=== PATIENT | female | born 1960 | race Caucasian/White ===

== ENCOUNTER 2024-05-13 14:08 | Emergency (ER) | payer OTHER, SELFPAY ==
[2024-05-13 14:10] VITALS: BP 167/97
--- NOTE | 2024-05-13 15:18 | ED.GENMED ---
History of Present Illness
<Linda Gayle PA-C - Last Filed: 05/14/24 11:12>
General
Chief Complaint: Numbness
Source: patient and family ([id number] at bedside assisting in translation)
Exam Limitations: none
Time Seen by Provider: 05/13/24 14:56
Nursing documentation reviewed up to this point in time: agreed with
History of Present Illness
History of Present Illness:
Patient is a 64-year-old female presenting to the emergency department for evaluation of facial pain. Patient reports starting this morning she has had intermittent bouts of severe facial pain on her right side of her face described as 'electric
shocks '. Bouts of pain have been intermittent occurring approximately every 30 minutes and last about 1 to 2 minutes each. Patient denies any other associated symptoms at that time including headache, changes in vision, neck pain, fever, or
chills. Patient denies any weakness. Bouts of pain�she is noticing pain and also notes some numbness in her hands.
Patient does state that over the past few weeks she has had some intermittent sense of numbness on the right side of her face the pain did not start till today.
Patient is mainly non-Mauritian speaking�her [id number] is in the room helping to translate. Patient reports recent increase in stress as her was diagnosed with ALS.
Past History
<Linda Gayle PA-C - Last Filed: 05/14/24 11:12>
Past History
ED Past Medical History: None
ED Past Surgical History: None
Social History
Tobacco: Non-smoker
Alcohol: None
Drug: None
Review of Systems
<Linda Gayle PA-C - Last Filed: 05/14/24 11:12>
Review of Systems
Allergies reviewed?: Yes
All Other Systems: ROS reviewed and negative except as documented in HPI and ROS
Phy Exam
<Linda Gayle PA-C - Last Filed: 05/14/24 11:12>
Physical Exam
Physical Exam:
Vitals: Mildly tachycardic, hypertensive
General: Patient is wincing in pain on my initial evaluation. Nontoxic-appearing
Skin: Warm and dry, no rashes or lesions
Head: Normocephalic, atraumatic. No rash on face. No tenderness overlying bilateral temporal arteries
Eyes: Sclera nonicteric. EOMs intact. No nystagmus. Pupils equal round reactive to light bilaterally
Throat: Good dentition. Protecting airway
Neck: Normal ROM, no cervical spine tenderness, no meningismus
Cardiac: Regular rate and rhythm, no murmurs.
Pulm: Normal respiratory effort, no wheezes, rales, rhonchi heard on exam.
Abdomen: Nondistended.
Extremities: No evidence of cyanosis or edema. Great distal pulse
Neuro: AAOx3. CN II-XII intact. No facial assymetry. Strength 5 out of 5 in upper and lower extremities. Sensation fully intact. Speech fluid. Bilateral patellar reflex 2+
Psychiatric: Normal affect.
Course
<Linda Gayle PA-C - Last Filed: 05/14/24 11:12>
Orders/Labs/Results
Orders:
Orders
05/13/24 15:41
CT Head W/o Iv Contrast Urgent
Comment:
Reason For Exam: Right sided facial numbness/ pain
Gabapentin [Neurontin] 100 mg PO NOW STA
05/13/24 15:54
Lorazepam [Ativan] 0.5 mg IV NOW STA
05/13/24 16:05
Basic Metabolic Panel Urgent
Complete Blood Count/With Diff Urgent
05/13/24 18:44
Carbamazepine [Tegretol] 200 mg PO NOW STA
Abnormal Lab Results
05/13/24
16:05
Absolute Neuts (auto) 7.4 H 10^3/uL
(1.4-6.5)
Absolute Lymphs (auto) 0.8 L 10^3/uL
(1.2-3.4)
Neutrophils % 86.1 H %
(42.2-75.2)
Lymphocytes % 9.2 L %
(20.5-51.1)
Carbon Dioxide 20 L mmol/L
(22-30)
Glucose 133 H mg/dl
(70-99)
05/13/24 16:05
05/13/24 16:05
Vital Signs
Initial and Last Documented VS:
Initial Vital Signs
Temp Pulse Resp BP Pulse Ox
98.8 F 104 18 167/97 98
05/13/24 14:10 05/13/24 14:10 05/13/24 14:10 05/13/24 14:10 05/13/24 14:10
Last Documented Vital Signs
Temp Pulse Resp BP Pulse Ox
98.8 F 96 18 156/74 99
05/13/24 14:10 05/13/24 19:34 05/13/24 19:34 05/13/24 19:34 05/13/24 19:19
<Gisele Crawford, DO - Last Filed: 05/13/24 18:33>
Orders/Labs/Results
Orders:
Orders
05/13/24 15:41
CT Head W/o Iv Contrast Urgent
Comment:
Reason For Exam: Right sided facial numbness/ pain
Gabapentin [Neurontin] 100 mg PO NOW STA
05/13/24 15:54
Lorazepam [Ativan] 0.5 mg IV NOW STA
05/13/24 16:05
Basic Metabolic Panel Urgent
Complete Blood Count/With Diff Urgent
05/13/24 18:44
Carbamazepine [Tegretol] 200 mg PO NOW STA
Abnormal Lab Results
05/13/24
16:05
Absolute Neuts (auto) 7.4 H 10^3/uL
(1.4-6.5)
Absolute Lymphs (auto) 0.8 L 10^3/uL
(1.2-3.4)
Neutrophils % 86.1 H %
(42.2-75.2)
Lymphocytes % 9.2 L %
(20.5-51.1)
Carbon Dioxide 20 L mmol/L
(22-30)
Glucose 133 H mg/dl
(70-99)
05/13/24 16:05
05/13/24 16:05
Vital Signs
Initial and Last Documented VS:
Initial Vital Signs
Temp Pulse Resp BP Pulse Ox
98.8 F 104 18 167/97 98
05/13/24 14:10 05/13/24 14:10 05/13/24 14:10 05/13/24 14:10 05/13/24 14:10
Last Documented Vital Signs
Temp Pulse Resp BP Pulse Ox
98.8 F 96 18 156/74 99
05/13/24 14:10 05/13/24 19:34 05/13/24 19:34 05/13/24 19:34 05/13/24 19:19
<Linda Gayle PA-C - Last Filed: 05/14/24 11:12>
MDM/Problems Addressed
Differential Diagnosis Includes:
Not limited to: trigeminal neuralgia, zoster, doubt CVA
MDM/Problems Addressed:
64 y.o F presenting with episodic right sided facial pain occurring intermittently over the past few weeks with significant increase in severity this morning. No other associated symptoms including fever, headache, visual changes, confusion,
weakness. No recent bug bite or rashes. Patient initially hypertensive on arrival to ED likely secondary to pain. Patient is afebrile. Patient is having episodic 'shock-like' pain in right face, clearly uncomfortable and tearful during these
episodes. .No rash to suggest zoster. No temporal artery tenderness or visual changes - do not suspect temporal arteritis. Do not suspect infectious process. Patient without any neurologic deficits. Speech fluid, no facial droop. Low suspicion for
central process including CVA. Given severity of pain - higher suspicion for possible trigeminal neuralgia. Given history of facial numbness will screen with basic labs and CT head. Will consult neurology pending results.
Chronic conditions affecting care:
N/A
Acute Exacerbation and/or Progression of Chronic Illness:
N/A
<Linda Gayle PA-C - Last Filed: 05/14/24 11:12>
*Radiology
Radiology exam reviewed: preliminary read by ED provider and radiology read reviewed
*Pulse Oximetry
Patient hypoxic: no
*EKG
Interpreted by ED Provider?: NA
*Livestock Nutritionist Interpretation
Rate: Livestock Nutritionist- N/A
*Critical Care Note
Total Time (30-74mins, 75-104mins- exclusive of procedures): Not Applicable
<Linda Gayle PA-C - Last Filed: 05/14/24 11:12>
Patient Management
Discussion with other providers: Director Diabetes (Neurology - Dr. Chavarria)
<Linda Gayle PA-C - Last Filed: 05/14/24 11:12>
Update Note
Update Note:
Update: Labs reviewed. No clinically significant abnormalities. CT without acute abnormalities. Discussed with neurology- Dr. Chavarria. Will discharge patient on tegratol to treat suspected trigeminal neuralgia and arrange fro outpatient pcp/neurology
follow-up. Did offer patient admission for pain control which patient declined. Patient declined dose of IV dialudid in ED. 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 Return precautions discussed with patient. Patient
seen with attending physician.
ED Attending Note
<Linda Gayle PA-C - Last Filed: 05/14/24 11:12>
-
Portions of this chart may have been created with voice recognition software.� Occasional wrong word or��sound alike� substitutions may have occurred due to the inherent limitations of voice recognition software.
<Gisele Crawford, DO - Last Filed: 05/13/24 18:33>
ED Attending Note
Patient seen and examined by attending physician: Yes
I performed the substantive portion of visit, reviewed & personally made and approve the management plan that is documented in note by myself or RYAN.: Yes
I performed a history and physical exam of patient and discussed management with resident, I reviewed resident's note and agree with documented findings and plan of care.: Yes
ED Attending Note:
64-year-old female without significant past medical history presenting to the emergency department for electric shock type pain to the right side of her face. She reports for the past several weeks she has been having some numbness symptoms to the
right side of her face with intermittent shocklike sensation, however this morning, frequency of shocking pain has been increasing. The symptoms expand across the entire right side of her face. Symptoms last about 1 to 2 minutes. She notes that
she has been under a lot of stress, her was recently diagnosed with ALS and she has been caring for him. Denies any recent trauma or surgery. Denies visual changes. Vital signs on arrival are significant for hypertension.
On exam, patient is in no acute distress, however while in examination room, is having episodes of pain every 5 to 10 minutes, lasting about a minute in duration. Patient very tearful, uncomfortable. No facial droop, no sensory deficits to the
face. Lower suspicion for central process such as CVA. Given her intensity of pain, trigeminal neuralgia is a consideration. Will screen with CT brain and consult with neurology.
18:20 -CT negative. In discussion with neurology, recommending carbamazepine, 400 mg daily and outpatient neurologic follow-up. Patient will likely need outpatient MRI imaging. Return for precautions and verbalized understanding
Discharge Plan
Departure
Patient Disposition: Home (Routine Discharge)
Date of Disposition: 05/13/24
Time of Disposition: 18:45
Patient with high blood pressure during this ER visit?: Yes
Condition: Good
Covid-19: Not Applicable
Discharge Problem:
Trigeminal neuralgia of right side of face
Instructions: Trigeminal neuralgia, Carbamazepine, BLOOD PRESSURE
Prescriptions:
New
carbamazepine 200 mg tablet
200 mg PO BID 30 Days Qty: 60 0RF
oxycodone 5 mg tablet
5 mg PO Q6H PRN (Reason: Pain) Qty: 5 0RF
No Action
Rituxan:
1 dose IV [id number]
Vitamin C:
1 tab PO DAILY
Vitamin D3 (cholecalciferol):
1 tab PO DAILY
acetaminophen 650 MG suppository
650 mg IA Q6HPRN PRN (Reason: fever, mild pain) Qty: 30 0RF
Referrals:
[facility] [Provider Group] - Tomorrow
Josef Chavarria MD [Active] - Next open appointment
NONE,* [Family Provider] -
Activity Restrictions/Additional Instructions:
Return to the emergency department with any high fevers, severe headache/neck pain, intractable pain, speech difficulty, visual changes, numbness/tingling, weakness, changes in mental status, or any other concern
-The prescription has been sent to your pharmacy. You should take this twice a day. You can continue with Tylenol and/or Motrin at home as needed. You can try warm compress/cold compress to ease pain.
-You should follow-up with primary care and neurology for further evaluation/management. You may require further imaging
Monitor your symptoms closely and return to the emergency department any acute worsening/new symptoms
Interventions
Interventions:
*Risk Screen - Suicide Last Done: 05/13/24 14:10
*General Assessment Last Done: 05/13/24 14:10
ED- Fall Risk Assessment Last Done: 05/13/24 16:15
*ED COVID-19 Vaccine History Last Done: 05/13/24 14:10
*Nursing Disposition Last Done: 05/13/24 19:34
ED- Neurological Assessment Last Done: 05/13/24 16:15
Discharge Date and Time
Discharge Date/Time: 05/13/24 19:40
Print Language: [place]
[2024-05-13] MEDS: ATIVAN 0.5 MG IV (16:09)
[2024-05-13 16:11] LABS: % Basophils 0.2 % (0-2); % Eosinophils 0.1 % (0-6); % Immature Granulocytes 0.3 % (0-0.5); % Lymphocytes 9.2 % (20.5-51.1); % Monocytes 4.1 % (1.7-9.3); % Neutrophils 86.1 % (42.2-75.2); Absolute Lymphocytes 0.8 10^3/uL (1.2-3.4); Absolute Monocytes 0.4 10^3/uL (0.1-0.6); Absolute Neutrophils 7.4 10^3/uL (1.4-6.5); Hematocrit 41.4 % (37.0-47.0); Hemoglobin 14.4 g/dL (12.0-16.0); Mean Corp Hgb Conc. 34.8 g/dL (33.0-37.0); Mean Corpuscular Hgb 28.2 pg (27.0-31.0); Mean Corpuscular Volume 81.2 fL (81.0-99.0); Mean Platelet Volume 8.9 fL (7.4-10.4); Nucleated Red Blood Cells % 0 %; Platelet Count 325 10^3/uL (130-400); Red Cell Dist. Width 12.7 % (11.5-14.5); White Blood Cell Count 8.6 10^3/uL (4.8-10.8)
[2024-05-13 16:12] VITALS: BP 146/65
[2024-05-13 16:34] LABS: Blood Urea Nitrogen 14 mg/dl (7-17); Calcium 10.1 mg/dl (8.4-10.2); Carbon Dioxide 20 mmol/L (22-30); Chloride 101 mmol/L (98-107); Glucose 133 mg/dl (70-99); Potassium 4.3 mmol/L (3.5-5.1); Sodium 137 mmol/L (135-145); eGFR > 60.00
[2024-05-13 17:40] VITALS: BP 157/77
[2024-05-13] MEDS: TEGRETOL 200 MG PO (19:03)
[2024-05-13 19:17] VITALS: BP 156/74
[2024-05-13 19:19] VITALS: BP 129/77
[2024-05-13 19:34] VITALS: BP 156/74
== END 2024-05-13 19:40 | disposition home or self-care (01) ==
LOC: EMR 14:08
PROVIDERS: Physician Assistant; EMERGENCY PHYSICIAN Student in an Organized Health Care Education/Training Program
DX: G50.0 Trigeminal neuralgia (principal); Z88.0 Allergy status to penicillin; Z88.8 Allergy status to other drugs, medicaments and biological substances
CPT/HCPCS: 99284; 96374; 70450; 80048; 85025